=== PATIENT | female | born 1975 | race Two or more races ===

== ENCOUNTER 2020-06-06 07:00 | Inpatient (IN) | payer OTHER ==
[~2020-06-06] VITALS: Ht 160 cm; Wt 59.9 kg
[2020-06-11] MEDS ORDERED: IBU600 MG PO (11:59)
[2020-06-11] MEDS ORDERED: COLACE100 MG PO (11:59)
[2020-06-11] MEDS ORDERED: SIMETHICONE80 MG PO (11:59)
== END 2020-06-11 13:34 | disposition home or self-care (01) | DRG 743 ==
LOC: EDSTATUS 07:00 → ADM 07:00 → OB/GYN 06-08 07:00 → O/R 06-08 09:26 → OB/GYN 06-08 16:39
PROVIDERS: Urology; ADMIT Obstetrics & Gynecology; ATTEND Obstetrics & Gynecology
PROC: 0WHR8YZ Insertion of Other Device into Genitourinary Tract, Via Natural or Artificial Opening Endoscopic (ICD-10-PCS; 2020-06-08)
PROC: 0UT90ZZ Resection of Uterus, Open Approach (ICD-10-PCS; principal; 2020-06-08 08:30)
PROC: 0UB70ZZ Excision of Bilateral Fallopian Tubes, Open Approach (ICD-10-PCS; 2020-06-08 08:30)
DX: D25.1 Intramural leiomyoma of uterus (principal); D25.2 Subserosal leiomyoma of uterus; N80.0 Endometriosis of uterus; N83.8 Other noninflammatory disorders of ovary, fallopian tube and broad ligament; D50.0 Iron deficiency anemia secondary to blood loss (chronic); N93.8 Other specified abnormal uterine and vaginal bleeding